=== PATIENT | female | born 1980 | race Caucasian/White ===

== ENCOUNTER 2020-09-27 15:26 | Emergency (ER) | payer MEDICAID, SELFPAY ==
[2020-09-27 15:26] VITALS: BP 121/74; PULSE 80; RESP 16; TEMP 35.7; O2SAT 100
[2020-09-27 15:27] VITALS: BP 121/74; PULSE 81; RESP 16; TEMP 35.7; O2SAT 99; BMI 38.5
--- NOTE | 2020-09-27 15:38 | ED.VIS.GEN ---
History of Present Illness Chief Complaint: Lower Extremity Injury Informant: Patient Narrative: 40-year-old female presenting with right ankle pain. She states last night she slipped on the ice while holding her daughter and she twisted her right foot behind her back and she has bruising on her ankle. She was ambulatory last night and is ambulatory today but states that it hurts to bear weight. She did not hit her head or lose consciousness. She is taking ibuprofen which she states does not help her pain much. Past Medical History - Allergies and Home Meds Allergies/Adverse Reactions: Allergies codeine Allergy (Verified 09/27/20 15:29) Itching Primary Care Physician: Tristan Vazquez DO [STAFF PHYSICIAN] - [facility] Doctor,Out of [NON-STAFF] - Prior records reviewed: Yes Past Medical History: - - Patient denies significant medical history Surgical History: - - Lives: With Family Alcohol: None Drugs: None Review of Systems General: Denies: Chills, Fever, Sweats Eyes: Denies: Visual changes - bilaterally, Diplopia ENT: Denies: Rhinorrhea, Sore throat Cardiovascular: Denies: Chest pain, Palpitations Respiratory: Denies: Dyspnea, Cough, Dyspnea on exertion Gastrointestinal: Denies: Abdominal pain, Nausea, Vomiting, Diarrhea, Melena, Hematochezia Genitourinary: Denies: Dysuria, Hematuria, Frequency Musculoskeletal: Reports: Extremity Pain - Right ankle pain Skin: Reports: - - Right ankle bruising Neurological: Denies: Headache, Weakness Physical Exam Vital Signs/Narrative: Vital Signs Temp Pulse Resp BP Pulse Ox 09/27/20 15:27 96.2 F L 81 16 121/74 H 99 09/27/20 15:26 96.2 F L 80 16 121/74 H 100 General: Well nourished, No Acute Distress Head: Normocephalic, Atraumatic Eyes: Perrl, EOMI ENT: Moist mucous membranes, No rhinorrhea Cardiovascular: Regular rate, Regular rhythm Respiratory: No distress, CTA bilaterally Extremities: - - Tenderness to palpation on the medial and lateral side of the left foot. There is bruising noted to the medial lateral areas as well. Right foot neurovascularly intact with brisk cap refill to all 5 toes. Skin: Normal color, No rash Neurological: Alert, Oriented x3, Cranial nerves II-XII grossly intact Psychological: Normal affect, Normal Mood Diagnostic/Tx/Re-eval Clinical Impression(s) from Imaging Studies Ankle X-Ray 09/27/20 15:42 IMPRESSION: Acute nondisplaced oblique fracture the distal right fibula the level tibial plafond with surrounding soft tissue swelling. Electronically Signed: Chago Parsons MD at 16:15 EST Tel , Service support , - Medical Decision Making 40-year-old female presenting with right ankle pain after mechanical fall. She was ambulatory but is having trouble with plantarflexion of her foot. She has bruising around her ankle. There is also swelling. Patient had x-ray of the right ankle which shows a distal fibular fracture without displacement as interpreted by myself. Radiology does agree. Patient declined any analgesia. Patient placed in a well padded posterior splint with stirrup fabricated by myself. Patient is neurovascularly intact afterwards. Patient given orthopedic follow-up. Impression: 1. Mechanical fall 2. Right distal fibular fracture ED Disposition - Plan for ED Patient: Disposition: Home or Assisted Living Instructions: ED Ankle Fracture, Distal Fibula Referrals: [facility] Doctor,Out of [NON-STAFF] - Tristan Vazquez DO [STAFF PHYSICIAN] -
--- NOTE | 2020-09-27 15:42 | RAD_ITS ---
STUDY: X-RAY - RIGHT ANKLE REASON FOR EXAM: Female, 40 years old. ankle pain TECHNIQUE: 3 view(s) of the ankle. COMPARISON: None. FINDINGS: Acute nondisplaced oblique fracture the distal fibula the level tibial plafond. Normal medial and lateral malleoli. Normal tibiotalar articulation and ankle mortise. Normal visualized talus and calcaneus. The visualized subtalar, talonavicular, calcaneocuboid and tarsal articulations are normal. Associated lateral soft tissue swelling. RAD/Ankle min 3 Views IMPRESSION: Acute nondisplaced oblique fracture the distal right fibula the level tibial plafond with surrounding soft tissue swelling. Electronically Signed: Chago Parsons MD at 16:15 EST Tel , Service support ,
[2020-09-27 17:37] VITALS: BP 139/71; PULSE 84; RESP 16; O2SAT 97
== END 2020-09-27 17:39 | disposition home or self-care (01) ==
PROVIDERS: Emergency Provider Student in an Organized Health Care Education/Training Program
DX: S82.434A Nondisplaced oblique fracture of shaft of right fibula, initial encounter for closed fracture (principal); X50.1XXA Overexertion from prolonged static or awkward postures, initial encounter; Y93.01 Activity, walking, marching and hiking; Y92.89 Other specified places as the place of occurrence of the external cause; Y99.8 Other external cause status
CPT/HCPCS: 29515; 73610; 99284